=== PATIENT | female | born 1980 ===

== ENCOUNTER → 2023-05-19 | Emergency (ER) | payer SELFPAY ==
[~2023-05-19] MED LIST: CEFAZOLIN SODIUM 1 GM/VIAL ONE; CEPHALEXIN 250 MG CAP ONE; HYDROCODONE/APAP 7.5/325 MG TAB ONE; LIDOCAINE 1% MPF 5 ML VIAL ONE; TDAP (DIPHTH,PERTUSS(ACELL),TET VAC) 0.5 ML VIAL IMVAC ONE; WATER FOR INJ,STERILE 10 ML ONE
--- NOTE | 2023-05-19 16:15 | RAD REPORT ---
EXAM DESCRIPTION: RAD - Foot Left 3 View - 05/19/2023 3:27 pm CLINICAL HISTORY: PAIN COMPARISON: No comparisons TECHNIQUE: Left foot, 3 views. FINDINGS: Mildly displaced fracture at the neck of the proximal phalanx third digit. Overlying soft tissue swelling. No dislocation or periosteal reaction. No air or foreign body in the soft tissues. IMPRESSION: Mildly displaced proximal phalanx third digit neck fracture.
--- NOTE | 2023-05-19 17:11 | ER ---
Nurse's Notes [facility] Name: Mak Rivera Age: 42 yrs Sex: Female : 1980 Arrival Date: 05/19/2023 Time: 14:19 Bed 11 Private MD: Diagnosis: Displaced fracture of proximal phalanx of left lesser toe(s), initial encounter for open fracture;Laceration without foreign body of foot Presentation: 05/19 14:35 Chief complaint: Spouse and/or significant other states: shelf fell at work and hit her ko1 foot. Coronavirus screen: At this time, the client does not indicate any symptoms associated with coronavirus-19. Ebola Screen: No symptoms or risks identified at this time. Initial Sepsis Screen: Does the patient meet any 2 criteria? No. Patient's initial sepsis screen is negative. Does the patient have a suspected source of infection? No. Patient's initial sepsis screen is negative. Risk Assessment: Do you want to hurt yourself or someone else? Patient reports no desire to harm self or others. Onset of symptoms was May 19, 2023. 14:35 Method Of Arrival: Wheelchair ko1 14:35 Acuity: GEOFF 4 ko1 Triage Assessment: 14:36 General: Appears in no apparent distress. uncomfortable, Behavior is calm, cooperative, ko1 appropriate for age. Pain: Complains of pain in left foot. Musculoskeletal: Reports pain in left foot. 17:50 Injury Description: Laceration. 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 - Social history:: Smoking status: Patient denies any tobacco usage or history of. Screenin:49 [facility] ED Fall Risk Assessment (Adult) History of falling in the last 3 months, ap3 including since admission No falls in past 3 months (0 pts). Abuse screen: Denies threats or abuse. Nutritional screening: No deficits noted. Tuberculosis screening: No symptoms or risk factors identified. Vital Signs: 14:35 BP 146 / 94; Pulse 87; Resp 15; Temp 97.8; Pulse Ox 100% ; ko1 ED Course: 14:22 Patient arrived in ED. mg5 14:24 Ene Dukes [facility]C [facility] kb 14:24 Derek Heck DO is Attending Physician. kb 14:36 Triage completed. ko1 14:36 Arm band placed on right wrist. Patient placed in waiting room, in a wheelchair, ko1 Patient notified of wait time. 15:29 Foot Left 3 View XRAY In Process Unspecified. EDMS 17:49 No provider procedures requiring assistance completed. Patient did not have IV access ap3 during this emergency room visit. 17:50 Provided Education on: discharge instructions. ap3 17:50 Patient has correct armband on for positive identification. Adult w/ patient. ap3 Administered Medications: 14:47 Drug: Boostrix Tdap IM 0.5 ml IM once; as a single dose {Note: [id number] exp 09/01/24.} ap3 Route: IM; Site: left deltoid; 17:14 Follow up: Response: No adverse reaction ap3 17:12 Drug: Hydrocodone-Acetaminophen PO (7.5 mg-325 mg) 1 tabs PO once Route: PO; ap3 17:49 Follow up: Response: No adverse reaction ap3 17:13 Not Given (Patient Refused): cefazolin1 grams IM once ap3 17:14 Drug: Lidocaine Infiltration (1 %) 1 vials 5 ml Infiltration once; to bedside {Note: by ap3 FNP. ene} Volume: 5 ml; Route: Infiltration; 17:23 Drug: Cephalexin PO 500 mg PO once Route: PO; ap3 17:49 Follow up: Response: No adverse reaction ap3 Medication: 17:50 Vaccine Information Statement (VIS) provided today. Questions and/or concerns ap3 addressed. VIS edition date: November 15, 2020. Outcome: 17:10 Discharge ordered by . kb 17:50 Discharged to home ambulatory, ap3 17:50 Condition: good 17:50 Discharge instructions given to patient, Instructed on discharge instructions, follow up and referral plans. medication usage, Demonstrated understanding of instructions, follow-up care, medications, Prescriptions given X 1, 17:50 Patient left the ED. ap3 Signatures: Dispatcher [employer] EDMS Ene Dukes FNP-C PROFESSOR OF HISTORICAL THEOLOGY-Ckb Autumn Small, RN RN ap3 Cherelle Womack, RN RN ko1 Melvi Jenkins mg5
--- NOTE | 2023-05-19 17:11 | EDPHYS ---
Physician Documentation [facility] Name: Mak Rivera Age: 42 yrs Sex: Female : 1980 Arrival Date: 05/19/2023 Time: 14:19 Bed 11 Private MD: ED Physician Derek Heck HPI: 05/19 14:35 This 42 yrs old Unknown Female presents to ER via Unassigned with complaints of Foot kb Injury. 14:35 Patient is a 42-year-old female who was working when a piece of wood fell onto her left kb foot. Accident occurred around 1130 today.. 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 - Social history:: Smoking status: Patient denies any tobacco usage or history of. ROS: 15:46 Constitutional: Negative for fever, chills, and weight loss, kb 15:46 MS/extremity: Positive for laceration, pain, of the dorsum of left foot, 15:46 All other systems are negative, Exam: 15:46 Constitutional: This is a well developed, well nourished patient who is awake, alert, kb and in no acute distress. Head/Face: Normocephalic, atraumatic. ENT: Moist Mucous membranes Cardiovascular: Regular rate Respiratory: Respirations even and unlabored. No increased work of breathing. Talking in full sentences Neuro: Awake and alert, GCS 15, oriented to person, place, time, and situation. Moves all extremities. Normal gait. 15:46 Musculoskeletal/extremity: Extremities: grossly normal except: noted in the dorsum of left foot: laceration, pain, ROM: intact in all extremities, Circulation is intact in all extremities. Sensation intact. 15:46 Skin: injury, laceration(s), the wound is approximately 2.5 cm(s), of the dorsum of left foot, that can be described as clean, no foreign body, irregular, without bleeding, Vital Signs: 14:35 BP 146 / 94; Pulse 87; Resp 15; Temp 97.8; Pulse Ox 100% ; ko1 Laceration: 17:08 Wound Repair of 2.5cm ( 1.0in ) subcutaneous laceration to dorsum of left foot. kb Irregularly shaped.. Skin/tissue flap noted.. Distal neuro/vascular/tendon intact. Anesthesia: Wound infiltrated with 5 mls of 1% lidocaine. Wound prep: Extensive cleansing with hibiclenz, Wound irrigation with saline, Copious irrigation. Skin closed with 10 4-0 Prolene using simple sutures and sterile technique. Patient tolerated well. MDM: 14:24 Patient medically screened. kb 15:47 Differential diagnosis: open fracture, closed fracture, contusion, laceration. Data kb reviewed: vital signs, nurses notes. 15:47 Historians other than the Patient: Spouse/Significant Other: . kb 17:08 Counseling: I had a detailed discussion with the patient and/or guardian regarding the kb historical points, exam findings, and any diagnostic results supporting the discharge/admit diagnosis, radiology results, the need for outpatient follow up, a family practitioner, to return to the emergency department if symptoms worsen or persist or if there are any questions or concerns that arise at home. 05/19 14:35 Order name: Foot Left 3 View XRAY; Complete Time: 16:16 kb 05/19 15:31 Order name: Dressing - Wound; Complete Time: 17:14 kb 05/19 15:31 Order name: Gloves, Sterile; Complete Time: 17:14 kb 05/19 15:31 Order name: Prolene, Sutures; Complete Time: 17:14 kb 05/19 15:31 Order name: Setup Suture Tray; Complete Time: 17:14 kb 05/19 17:37 Order name: Post-op shoe; Complete Time: 17:49 kb Administered Medications: 14:47 Drug: Boostrix Tdap IM 0.5 ml IM once; as a single dose {Note: [id number] exp 09/01/24.} ap3 Route: IM; Site: left deltoid; 17:14 Follow up: Response: No adverse reaction ap3 17:12 Drug: Hydrocodone-Acetaminophen PO (7.5 mg-325 mg) 1 tabs PO once Route: PO; ap3 17:49 Follow up: Response: No adverse reaction ap3 17:13 Not Given (Patient Refused): cefazolin1 grams IM once ap3 17:14 Drug: Lidocaine Infiltration (1 %) 1 vials 5 ml Infiltration once; to bedside {Note: by ap3 FNP. ene} Volume: 5 ml; Route: Infiltration; 17:23 Drug: Cephalexin PO 500 mg PO once Route: PO; ap3 17:49 Follow up: Response: No adverse reaction ap3 Disposition: 15:54 I was immediately available on-site in the Emergency Department for consultation in the mi3 care of the patient . Disposition Summary: 05/19/23 17:10 Discharge Ordered Notes: Location: Home kb Condition: Stable kb Diagnosis - Displaced fracture of proximal phalanx of left lesser toe(s), initial encounter for kb open fracture - Laceration without foreign body of foot kb Followup: kb - With: Emergency Department - When: As needed - Reason: Worsening of condition Followup: kb - With: Private Physician - When: 2 - 3 days - Reason: Recheck today's complaints, Continuance of care, Re-evaluation by your physician Discharge Instructions: - Discharge Summary Sheet kb - Toe Fracture, [id number] kb - Laceration Care, Adult, [id number] kb Forms: - Medication Reconciliation Form kb - Thank You Letter kb - Antibiotic Education kb - Prescription Opioid Use kb - Patient Portal Instructions kb - Leadership Thank You Letter kb Prescriptions: - Cephalexin 500 mg Oral Capsule - take 1 capsule ORAL route every 8 hours for 10 days; 30 capsule; Refills: 0, kb Product Selection Permitted Signatures: Dispatcher [employer] EDIA Ene Dukes FNP-C FNP-Ckb Prokisch, Amanda, RN RN ap3 Derek Heck DO DO ms3 Cherelle Womack, BRENDA RN ko1
[2023-05-21 00:37] VITALS: BP 146/94; TEMP 97.8; O2SAT 100
== END ==
LOC: ER 14:19
PROC: 0HQNXZZ Repair Left Foot Skin, External Approach (ICD-10-PCS; principal; 2023-05-19)
DX: S92.512B Displaced fracture of proximal phalanx of left lesser toe(s), initial encounter for open fracture (principal)
CPT/HCPCS: J0690; J2001